=== PATIENT | male | born 1955 | race Caucasian/White ===

== ENCOUNTER 2019-01-07 08:34 | Day surgery (SDC) | payer OTHER ==
[~2019-01-07] VITALS: Ht 175.3 cm; Wt 78.7 kg
[2019-01-07 09:52] VITALS: Ht 175.3 cm; Wt 78.7 kg
[2019-01-07] MEDS ORDERED: NO MEDS. (09:53)
[2019-01-07 10:02] VITALS: BP 121/87; PULSE 65; RESP 22
[2019-01-07] MEDS ORDERED: FENTAnyl 50 MCG/ML VIAL ONE (10:39)
[2019-01-07] MEDS ORDERED: MIDAZOLAM 1 MG/ML 2 ML INJ ONE ×2 (10:39→10:40)
[2019-01-07 11:02] VITALS: BP 105/68; PULSE 81; RESP 14
== END 2019-01-07 15:39 | disposition home or self-care (01) ==
LOC: GIL 08:34
PROVIDERS: ATTEND Internal Medicine Gastroenterology
DX: Z12.11 Encounter for screening for malignant neoplasm of colon (principal); D12.5 Benign neoplasm of sigmoid colon
CPT/HCPCS: 45380; 88305; J2250; J3010; Z7610